=== PATIENT | male | born 1970 | race Caucasian/White ===

== ENCOUNTER 2018-11-01 17:00 | Emergency (ER) | payer BC ==
[2018-11-01 17:40] VITALS: BP 132/84
--- NOTE | 2018-11-01 18:22 | UC ---
Skin Complaint HPI - HPI Summary HPI Summary: 47-year-old male comes in with a chief complaint of a rash on sacrum. Started several days ago it's got little vesicles on it and it's red it moeller and itches gets some pain. He's had this several times over the last year or so. Never knew what it was. No fevers or chills feels well otherwise. First on the rash occurred it was in the genital area. Patient has noticed a bony prominence on his proximal left clavicle. Been going on for several months. It's painful when he pushes on it is not painful when he doesn't push on it. No known trauma. - History of Current Complaint Chief Complaint: UCSkin Time Seen by Provider: 11/01/18 17:30 Stated Complaint: SKIN CONCERN, COLLARBONE AREA PAIN (LEFT SIDE) Pain Intensity: 2 - Allergy/Home Medications Allergies/Adverse Reactions: Allergies Allergy/AdvReac Type Severity Reaction Status Date / Time No Known Allergies Allergy Verified 11/01/18 17:40 Home Medications: Home Medications Loratadine [Claritin 10 MG CAP] 1 tab DAILY 11/01/18 [History Confirmed 11/01/18 ] PMH/Surg Hx/FS Hx/Imm Hx Previously Healthy: Yes - Surgical History Surgical History: Yes Surgery Procedure, Year, and Place: Scoliosis - two steel rods, 1984 - Family History Known Family History: Positive: Non-Contributory - Social History Alcohol Use: Quit 2005 Substance Use Type: None Smoking Status (MU): Former Smoker Type: Cigarettes Amount Used/How Often: >1 PPD and 3cans/week Length of Time of Smoking/Using Tobacco: 12 Years Have You Smoked in the Last Year: No When Did the Patient Quit Smoking/Using Tobacco: 2008 Review of Systems All Other Systems Reviewed And Are Negative: Yes Constitutional: Positive: Negative Skin: Positive: Other - SEE HPI Eyes: Positive: Negative ENT: Positive: Negative Respiratory: Positive: Negative Cardiovascular: Positive: Negative Genitourinary: Positive: Negative Motor: Positive: Negative Neurovascular: Positive: Negative Musculoskeletal: Positive: Other: - SEE HPI Neurological: Positive: Negative Psychological: Positive: Negative Is Patient Immunocompromised?: No Physical Exam Triage Information Reviewed: Yes Appearance: Well-Appearing, No Pain Distress, Well-Nourished Vital Signs: Initial Vital Signs Temp 98.5 F 11/01/18 17:35 Pulse 80 11/01/18 17:35 Resp 16 11/01/18 17:35 BP 132/84 11/01/18 17:35 Pulse Ox 99 11/01/18 17:35 Vital Signs Reviewed: Yes Eye Exam: Normal Eyes: Positive: Conjunctiva Clear Neck: Positive: Supple Respiratory: Positive: Lungs clear, Normal breath sounds, No respiratory distress, Other: - There is a slight swelling of the proximal left clavicle it' s mildly tender to palpation. Arm and neck is full range of motion. Cardiovascular: Positive: RRR Musculoskeletal: Positive: Other: - There is a slight swelling of the proximal left clavicle it's mildly tender to palpation. Arm and neck is full range of motion. Neurological: Positive: Alert Psychological: Positive: Normal Response To Family, Age Appropriate Behavior Skin: Positive: Other - OVER THE SACRUM 3 AREAS OF 2-3CM ERYTHEMA WITH VESICLES. CULTURE WAS TAKEN FROM THESE VESICLES BY MYSELF Course/Dx - Course Course Of Treatment: I discussed the clavicle x-ray with the patient. I do not see any fracture radiologist reading is pending. The plan for the clavicles have him follow-up with orthopedics. For the infection I will treat this as a new outbreak with valacyclovir 1 g by mouth twice a day 10 days. I also let him know that if he gets any new rash later. Takes 1 g once a day for 5 days. Cultures pending. 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 - Diagnoses Provider Diagnosis: Deformity, clavicle, Herpes genitalis in men Discharge - Sign-Out/Discharge Documenting (check all that apply): Patient Departure All imaging exams completed and their final reports reviewed: No - Discharge Plan Condition: Stable Disposition: HOME Prescriptions: Valacyclovir HCl [Valacyclovir] 1 gm PO BID #20 tab Patient Education Materials: Genital Herpes Simplex (ED) Referrals: Rafiq Hinton MD [Medical Doctor] - Additional Instructions: FOLLOW UP WITH ORTHOPEDICS, DR HINTON, FOR YOUR LEFT CLAVICLE. FOLLOW UP WITH YOUR PRIMARY CARE DOCTOR. TAKE THE VALACYCLOVIR 1 GRAM TWICE A DAY FOR 10 DAYS. FOR ANY REOCCURRENCE OF THE RASH, TAKE VALACYCLOVIR 1 GRAM ONCE A DAY FOR 5 DAYS. GET RECHECKED SOONER IF YOUR CONDITION WORSENS OR ANY QUESTIONS OR CONCERNS. - Billing Disposition and Condition Condition: STABLE Disposition: Home
--- NOTE | 2018-11-02 08:03 | UC ---
- Progress Note Progress Note: No change in initial management. Patient can still follow up with ortho for abnormal physical exam finding of clavicle despite negative xray. - EKG/XRAY/CT Xray Comments: Clavicle: No acute fracture Course/Dx - Diagnoses Provider Diagnoses: Deformity, clavicle, Herpes genitalis in men Discharge - Sign-Out/Discharge Documenting (check all that apply): Post-Discharge Follow Up All imaging exams completed and their final reports reviewed: Yes - Discharge Plan Condition: Stable Disposition: HOME Prescriptions: Valacyclovir HCl [Valacyclovir] 1 gm PO BID #20 tab Patient Education Materials: Genital Herpes Simplex (ED) Referrals: Rafiq Hinton MD [Medical Doctor] - Additional Instructions: FOLLOW UP WITH ORTHOPEDICS, DR HINTON, FOR YOUR LEFT CLAVICLE. FOLLOW UP WITH YOUR PRIMARY CARE DOCTOR. TAKE THE VALACYCLOVIR 1 GRAM TWICE A DAY FOR 10 DAYS. FOR ANY REOCCURRENCE OF THE RASH, TAKE VALACYCLOVIR 1 GRAM ONCE A DAY FOR 5 DAYS. GET RECHECKED SOONER IF YOUR CONDITION WORSENS OR ANY QUESTIONS OR CONCERNS. - Billing Disposition and Condition Condition: STABLE Disposition: Home
[2018-11-03 18:37] LABS: HSV 1 PCR Negative (Negative); Herpes Source SACRUM
--- NOTE | 2018-11-04 07:15 | UC ---
- Progress Note Progress Note: Reviewed HASV results 11/01/18. + HSV 2. Cont valcyclovir as prescribed. Important to f/u pcp re [facility] management. RN to call pt to advise of results. And HSV precautions. - EKG/XRAY/CT Xray Comments: Clavicle: No acute fracture Course/Dx - Diagnoses Provider Diagnoses: Deformity, clavicle, Herpes genitalis in men Discharge - Sign-Out/Discharge Documenting (check all that apply): Post-Discharge Follow Up All imaging exams completed and their final reports reviewed: Yes - Discharge Plan Condition: Stable Disposition: HOME Prescriptions: Valacyclovir HCl [Valacyclovir] 1 gm PO BID #20 tab Patient Education Materials: Genital Herpes Simplex (ED) Referrals: Rafiq Hinton MD [Medical Doctor] - Additional Instructions: FOLLOW UP WITH ORTHOPEDICS, DR HINTON, FOR YOUR LEFT CLAVICLE. FOLLOW UP WITH YOUR PRIMARY CARE DOCTOR. TAKE THE VALACYCLOVIR 1 GRAM TWICE A DAY FOR 10 DAYS. FOR ANY REOCCURRENCE OF THE RASH, TAKE VALACYCLOVIR 1 GRAM ONCE A DAY FOR 5 DAYS. GET RECHECKED SOONER IF YOUR CONDITION WORSENS OR ANY QUESTIONS OR CONCERNS. - Billing Disposition and Condition Condition: STABLE Disposition: Home
== END 2018-11-01 18:40 | disposition home or self-care (01) ==
LOC: UCCORT 17:00
DX: A60.00 Herpesviral infection of urogenital system, unspecified (principal); L53.8 Other specified erythematous conditions; M95.8 Other specified acquired deformities of musculoskeletal system; Z87.891 Personal history of nicotine dependence
CPT/HCPCS: 87529; 99202; G0463

== ENCOUNTER 2019-09-01 14:48 | Emergency (ER) | payer BC ==
[2019-09-01 15:32] VITALS: BP 129/65
--- NOTE | 2019-09-01 15:42 | UC ---
FLU HPI - HPI Summary HPI Summary: 48 yo with 6 days of malaise, chills, subjective fever, cough. He was seen on and diagnosed with bronchitis, treated with prednisone and albuterol without improvement. He has had close exposure with flu A. - History of Current Complaint Chief Complaint: UCGeneralIllness Stated Complaint: FLU SXS Time Seen by Provider: 09/01/19 15:27 Hx Obtained From: Patient Onset/Duration: Sudden Onset, Lasting Days Severity Currently: Moderate Severity Initially: Moderate Pain Intensity: 7 Associated Signs & Symptoms: Positive: Fever, Cough, Sore Throat, Nasal Congestion - Risk Factors Influenza Risk Factors: Negative - Allergy/Home Medications Allergies/Adverse Reactions: Allergies Allergy/AdvReac Type Severity Reaction Status Date / Time No Known Allergies Allergy Verified 09/01/19 15:33 Home Medications: Home Medications NK [No Home Medications Reported] 09/01/19 [History Confirmed 09/01/19] PMH/Surg Hx/FS Hx/Imm Hx - Additional Past Medical History Additional PMH: recovered alcoholic, 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 Previously Healthy: Yes - Surgical History Surgical History: Yes Surgery Procedure, Year, and Place: Scoliosis - two steel rods, 1984 - Family History Known Family History: Positive: Cardiac Disease - father had bypass, Other - longevity - Social History Occupation: Employed Full-time Alcohol Use: None Substance Use Type: None Smoking Status (MU): Former Smoker Type: Cigarettes Amount Used/How Often: >1 PPD and 3cans/week Length of Time of Smoking/Using Tobacco: 12 Years Have You Smoked in the Last Year: No When Did the Patient Quit Smoking/Using Tobacco: 2008 Review of Systems All Other Systems Reviewed And Are Negative: Yes Constitutional: Positive: Fever, Fatigue Skin: Positive: Negative Eyes: Positive: Negative ENT: Positive: Sore Throat Respiratory: Positive: Shortness Of Breath, Cough Cardiovascular: Negative: Palpitations, Chest Pain Gastrointestinal: Positive: Negative Genitourinary: Positive: Negative Motor: Positive: Negative Neurovascular: Positive: Negative Musculoskeletal: Positive: Negative Neurological/Mental Status: Positive: Negative Psychological: Positive: Negative Is Patient Immunocompromised?: No Physical Exam Triage Information Reviewed: Yes Appearance: No Pain Distress, Ill-Appearing Vital Signs: Initial Vital Signs Temp 98.8 F 09/01/19 15:25 Pulse 83 09/01/19 15:25 Resp 16 09/01/19 15:25 BP 129/65 09/01/19 15:25 Pulse Ox 98 09/01/19 15:25 Vital Signs Reviewed: Yes Eyes: Positive: Conjunctiva Clear ENT: Positive: Pharyngeal erythema, TMs normal Neck: Positive: Supple, Nontender, No Lymphadenopathy Respiratory: Positive: Lungs clear, Normal breath sounds, No respiratory distress Cardiovascular: Positive: RRR, No Murmur Musculoskeletal Exam: Normal Neurological Exam: Normal Psychological Exam: Normal Skin Exam: Normal Diagnostics - Laboratory Lab Results: influenza A Flu Course/Dx - Course Course Of Treatment: continue symptomatic treatment of flu A - Differential Dx/Diagnosis Differential Diagnosis/HQI/PQRI: Influenza, Upper Respiratory Infection Provider Diagnosis: Influenza A Discharge ED - Sign-Out/Discharge Documenting (check all that apply): Patient Departure All imaging exams completed and their final reports reviewed: No Studies - Discharge Plan Condition: Stable Disposition: HOME Patient Education Materials: Influenza (ED) Referrals: No Primary Care Phys,NOPCP [Primary Care Provider] - Additional Instructions: Continue symptomatic treatment of influenza, anticipate another several days of symptoms. - Billing Disposition and Condition Condition: STABLE Disposition: Home
[2019-09-01 15:45] LABS: Influenza A Molecular POSITIVE (Negative)
== END 2019-09-01 16:08 | disposition home or self-care (01) ==
LOC: UCCORT 14:48
DX: J10.1 Influenza due to other identified influenza virus with other respiratory manifestations (principal); R06.02 Shortness of breath; Z87.891 Personal history of nicotine dependence
CPT/HCPCS: 99211; G0463

== ENCOUNTER 2019-09-06 12:45 | Emergency (ER) | payer BC ==
[2019-09-06 13:05] VITALS: BP 128/73
--- NOTE | 2019-09-06 13:25 | UC ---
Respiratory Complaint HPI - HPI Summary HPI Summary: 48-year-old male comes in with a chief complaint of upper respiratory tract infection symptoms since August 25, 2019. Patient was diagnosed with influenza on 01 September 2019. He's had rhinorrhea chest congestion is nasal discharge cough chest congestion. He did use an albuterol inhaler early in the illness which did not help with the chest congestion. He's on day 12 his illness and is not improving. - History of Current Complaint Chief Complaint: UCRespiratory Stated Complaint: FLU RECHECK Time Seen by Provider: 09/06/19 13:05 Pain Intensity: 7 - Allergies/Home Medications Allergies/Adverse Reactions: Allergies Allergy/AdvReac Type Severity Reaction Status Date / Time No Known Allergies Allergy Verified 09/06/19 13:05 Home Medications: Home Medications DOXYcycline CAP(*) [DOXYcycline 100MG CAP(*)] 100 mg PO BID #20 cap 09/06/19 [Rx ] guaiFENesin ER TAB [Mucinex*] 600 mg PO ONCE 09/06/19 [History Confirmed ] PMH/Surg Hx/FS Hx/Imm Hx Previously Healthy: Yes - Surgical History Surgical History: Yes Surgery Procedure, Year, and Place: Scoliosis - two steel rods, 1984. nasal polyps - Family History Known Family History: Positive: Cardiac Disease - father had bypass, Other - longevity, Non-Contributory - Social History Alcohol Use: None Substance Use Type: None Smoking Status (MU): Former Smoker Type: Cigarettes Amount Used/How Often: >1 PPD and 3cans/week Length of Time of Smoking/Using Tobacco: 12 Years Have You Smoked in the Last Year: No When Did the Patient Quit Smoking/Using Tobacco: 2008 Review of Systems All Other Systems Reviewed And Are Negative: Yes Constitutional: Positive: Other - SEE HPI Skin: Positive: Negative Eyes: Positive: Negative ENT: Positive: Nasal Discharge, Sinus Congestion Respiratory: Positive: Cough, Other - SEE HPI Cardiovascular: Positive: Negative Gastrointestinal: Positive: Negative Motor: Positive: Negative Neurovascular: Positive: Negative Musculoskeletal: Positive: Negative Neurological/Mental Status: Positive: Negative Psychological: Positive: Negative Is Patient Immunocompromised?: No Physical Exam Triage Information Reviewed: Yes Appearance: No Pain Distress, Well-Nourished, Ill-Appearing - MILD Vital Signs: Initial Vital Signs Temp 98.1 F 09/06/19 13:03 Pulse 81 09/06/19 13:03 Resp 20 03/18/20 13:03 BP 128/73 09/06/19 13:03 Pulse Ox 99 09/06/19 13:03 Vital Signs Reviewed: Yes Eye Exam: Normal Eyes: Positive: Conjunctiva Clear ENT: Positive: Nasal congestion, Nasal drainage, TMs normal Neck: Positive: Supple Respiratory: Positive: No respiratory distress, Rhonchi Cardiovascular: Positive: RRR Musculoskeletal: Positive: Strength Intact, ROM Intact Neurological: Positive: Alert, Muscle Tone Normal Psychological: Positive: Age Appropriate Behavior Skin Exam: Normal Respiratory Course/Dx - Differential Dx/Diagnosis Provider Diagnosis: Bronchitis Discharge ED - Sign-Out/Discharge Documenting (check all that apply): Patient Departure All imaging exams completed and their final reports reviewed: No Studies - Discharge Plan Condition: Stable Disposition: HOME Prescriptions: DOXYcycline CAP(*) [DOXYcycline 100MG CAP(*)] 100 mg PO BID #20 cap Patient Education Materials: Acute Bronchitis (ED) Forms: *Work Release Referrals: [facility] [Outside] Additional Instructions: FOLLOW UP WITH YOUR DOCTOR IF NOT COMPLETELY IMPROVED. GET REEVALUATED IF NOT IMPROVING OR WORSE OR ANY QUESTIONS OR CONCERNS. - Billing Disposition and Condition Condition: STABLE Disposition: Home
== END 2019-09-06 13:34 | disposition home or self-care (01) ==
LOC: UCCORT 12:45
DX: J40 Bronchitis, not specified as acute or chronic (principal); R09.89 Other specified symptoms and signs involving the circulatory and respiratory systems; Z87.891 Personal history of nicotine dependence
CPT/HCPCS: 99212; G0463